=== PATIENT | male | born 1990 | race American Indian/Alaskan Native ===

== ENCOUNTER 2019-07-22 08:32 | Emergency (ER) | payer SELFPAY ==
[2019-07-22 08:43] VITALS: BP 105/75
--- NOTE | 2019-07-22 09:46 | Emergency Department Report ---
Minor Respiratory - HPI Chief Complaint: Upper Respiratory Infection Stated Complaint: COLD SX/TIGHTNESS IN CHEST Time Seen by Provider: 07/22/19 09:41 Duration: 2 Days Severity: mild Minor Respiratory: Yes Rhinorrhea, Yes Sore Throat, Yes Able to Tolerate Fluids, Yes Cough, Yes Fever (subjective) Other History: 29 year old -Martiniquais male presented to the emergency room complaining of cough and nasal congestion, sneezing, runny nose, headache located in the frontal and sore throat. Patient reports he symptoms have been going on for approximately 2 days. Patient does elicit that he is recently returned from being employed [place]. Patient reports she is having yellow to brownish mucus. Patient states he is taking cold and flu pills last dose was last night. ED Review of Systems ROS: Stated complaint: COLD SX/TIGHTNESS IN CHEST Other details as noted in HPI Comment: All other systems reviewed and negative Constitutional: fever ENT: throat pain, congestion, other (sneezing) Respiratory: cough Neurological: headache ED Past Medical Hx - Past Medical History Previous Medical History?: No - Surgical History Past Surgical History?: No - Social History Smoking Status: Never Smoker Substance Use Type: None - Medications Home Medications: Home Medications Medication Instructions Recorded Confirmed Last Taken Type DOXYCYCLINE Hyclate [Vibramycin 1 tab PO Q12HR #20 capsule 12/06/15 Unknown Rx CAP] Ondansetron [Zofran Odt] 1 tab PO Q8HR PRN #12 tab.rapdis 12/06/15 Unknown Rx Fluticasone Furoate [Flonase 15.8 ml NS QDAY #1 spray.susp 07/22/19 Unknown Rx Sensimist] Loratadine [Claritin] 10 mg PO DAILY #30 tablet 07/22/19 Unknown Rx cephALEXin [Keflex] 500 mg PO Q12HR #20 cap 07/22/19 Unknown Rx Minor Respiratory Exam - Exam General: Vital signs noted. No distress. Alert and acting appropriately. HEENT: Yes Pharyngeal Erythema, Yes Pharyngeal Exudates, Yes Moist Mucous Membranes, Yes Rhinorrhea, Yes Frontal Tenderness, Yes Maxillary Tenderness Ear: Neither TM Bulge, Neither TM Erythema, Neither EAC Pain, Neither EAC Discharge Neck: Yes Adenopathy (thyroidmegaly), Yes Supple Lungs: Yes Good Air Exchange, No Wheezes, No Ronchi, No Stridor, No Cough, No L abored Respirations, No Retractions, No Use of Accessory Muscles, No Other Abnormal Lung Sounds Heart: Yes Regular, No Murmur Abdomen: Yes Normal Bowel Sounds, No Tenderness, No Peritoneal Signs Skin: No Rash, No Edema Neurologic: Alert and oriented, no deficits. Musculoskeletal: Unremarkable. ED Course Vital Signs 07/22/19 08:41 Temperature 98.2 F Pulse Rate 68 Respiratory 16 Rate Blood Pressure 105/75 O2 Sat by Pulse 96 Oximetry ED Medical Decision Making - Medical Decision Making 29 year old -Martiniquais male presented to the emergency room complaining of cough and nasal congestion, sneezing, runny nose, headache located in the frontal and sore throat. Patient reports he symptoms have been going on for approximately 2 days. Patient does elicit that he is recently returned from being employed [place]. Patient states he is taking cold and flu pills last dose was last night. Patient reports she is having yellow to brownish mucus. Critical care attestation.: If time is entered above; I have spent that time in minutes in the direct care of this critically ill patient, excluding procedure time. ED Disposition Clinical Impression: Sinusitis chronic, frontal Disposition: DC-01 TO HOME OR SELFCARE Is pt being admited?: No Does the pt Need Aspirin: No Condition: Stable Instructions: Sinusitis (ED) Prescriptions: Loratadine [Claritin] 10 mg PO DAILY #30 tablet Fluticasone Furoate [Flonase Sensimist] 15.8 ml NS QDAY #1 spray.susp cephALEXin [Keflex] 500 mg PO Q12HR #20 cap Referrals: [facility] [Outside] - 3-5 Days [facility] [Outside] - 3-5 Days Forms: Work/School Release Form(ED)
== END 2019-07-22 09:58 | disposition home or self-care (01) ==
LOC: ED 08:32
DX: J32.1 Chronic frontal sinusitis (principal); Z79.899 Other long term (current) drug therapy
CPT/HCPCS: 99282

== ENCOUNTER 2021-07-18 12:40 | Emergency (ER) | payer SELFPAY ==
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
[2021-07-18 14:06] VITALS: BP 119/75
== END 2021-07-18 14:05 | disposition home or self-care (01) ==
LOC: ED 12:40
DX: S16.1XXA Strain of muscle, fascia and tendon at neck level, initial encounter (principal); M62.830 Muscle spasm of back; V49.59XA Passenger injured in collision with other motor vehicles in traffic accident, initial encounter; Y93.89 Activity, other specified; Y92.89 Other specified places as the place of occurrence of the external cause; Y99.8 Other external cause status
CPT/HCPCS: 99282

== ENCOUNTER 2021-10-09 12:46 | Emergency (ER) | payer SELFPAY ==
--- NOTE | 2021-10-09 14:09 | XRay Report ---
CHEST 2 VIEWS INDICATION / CLINICAL INFORMATION: sob. COMPARISON: None available. FINDINGS: SUPPORT DEVICES: None. HEART / MEDIASTINUM: No significant abnormality. LUNGS / PLEURA: There are mild patchy bilateral opacities. ADDITIONAL FINDINGS: No significant additional findings. IMPRESSION: 1. Mild patchy bilateral opacities likely reflect a multifocal pneumonia. Signer Name: Jose Angel Almaraz MD Signed: 10/09/2021 2:04 PM Workstation Name: [id number]
--- NOTE | 2021-10-09 14:15 | Emergency Department Report ---
- General Chief Complaint: Upper Respiratory Infection Stated Complaint: COVID SX'S Time Seen by Provider: 10/09/21 13:51 Source: patient Mode of arrival: Ambulatory Limitations: No Limitations - History of Present Illness Initial Comments: Patient is a 31-year-old male presents emergency room complaints of being COVID- 19 positive. He reports that he tested positive on 10/03/2022 while in [place] for a wedding. He has not been vaccinated for COVID-19. He has associated chills, headache, nausea, dry cough, shortness of breath, chest discomfort with coughing. He denies any fever, vomiting, diarrhea, hemoptysis, pleuritic pain. No past medical history. No allergies to medications. He is a non-smoker. - Related Data Previous Rx's Medication Instructions Recorded Last Taken Type DOXYCYCLINE Hyclate [Vibramycin 1 tab PO Q12HR #20 capsule 12/06/15 Unknown Rx CAP] Ondansetron [Zofran Odt] 1 tab PO Q8HR PRN #12 tab.rapdis 12/06/15 Unknown Rx Fluticasone Furoate [Flonase 15.8 ml NS QDAY #1 spray.susp 07/22/19 Unknown Rx Sensimist] Loratadine (Nf) [Claritin] 10 mg PO DAILY #30 tablet 07/22/19 Unknown Rx cephALEXin [Keflex] 500 mg PO Q12HR #20 cap 07/22/19 Unknown Rx Ibuprofen [Motrin] 600 mg PO Q8H PRN #30 tablet 07/18/21 Unknown Rx methOCARBAMOL [Robaxin TAB] 750 mg PO Q8H PRN #30 tablet 07/18/21 Unknown Rx Azithromycin [Zithromax TAB] 250 mg PO QDAY 5 Days #6 tablet 10/09/21 Unknown Rx Benzonatate [Tessalon Perles] 100 mg PO Q8HR PRN #12 cap 10/09/21 Unknown Rx Dexamethasone 6 mg PO DAILY 7 Days #7 tab 10/09/21 Unknown Rx guaiFENesin ER [Mucinex ER] 600 mg PO Q12H #14 tab 10/09/21 Unknown Rx Allergies Allergy/AdvReac Type Severity Reaction Status Date / Time No Known Allergies Allergy Verified 10/09/21 12:48 ED Review of Systems ROS: Stated complaint: COVID SX'S Other details as noted in HPI Comment: All other systems reviewed and negative ED Past Medical Hx - Past Medical History Previous Medical History?: No - Surgical History Past Surgical History?: No - Social History Smoking Status: Never Smoker Substance Use Type: None - Medications Home Medications: Home Medications Medication Instructions Recorded Confirmed Last Taken Type DOXYCYCLINE Hyclate [Vibramycin 1 tab PO Q12HR #20 capsule 12/06/15 Unknown Rx CAP] Ondansetron [Zofran Odt] 1 tab PO Q8HR PRN #12 tab.rapdis 12/06/15 Unknown Rx Fluticasone Furoate [Flonase 15.8 ml NS QDAY #1 spray.susp 07/22/19 Unknown Rx Sensimist] Loratadine (Nf) [Claritin] 10 mg PO DAILY #30 tablet 07/22/19 Unknown Rx cephALEXin [Keflex] 500 mg PO Q12HR #20 cap 07/22/19 Unknown Rx Ibuprofen [Motrin] 600 mg PO Q8H PRN #30 tablet 07/18/21 Unknown Rx methOCARBAMOL [Robaxin TAB] 750 mg PO Q8H PRN #30 tablet 07/18/21 Unknown Rx Azithromycin [Zithromax TAB] 250 mg PO QDAY 5 Days #6 tablet 10/09/21 Unknown Rx Benzonatate [Tessalon Perles] 100 mg PO Q8HR PRN #12 cap 10/09/21 Unknown Rx Dexamethasone 6 mg PO DAILY 7 Days #7 tab 10/09/21 Unknown Rx guaiFENesin ER [Mucinex ER] 600 mg PO Q12H #14 tab 10/09/21 Unknown Rx ED Physical Exam - General Limitations: No Limitations General appearance: alert, in no apparent distress - Head Head exam: Present: atraumatic, normocephalic - Eye Eye exam: Present: normal appearance - ENT ENT exam: Present: mucous membranes moist - Respiratory Respiratory exam: Present: normal lung sounds bilaterally. Absent: respiratory distress, wheezes, rales, rhonchi, stridor, chest wall tenderness, accessory muscle use, decreased breath sounds, prolonged expiratory - Cardiovascular Cardiovascular Exam: Present: regular rate, normal rhythm, normal heart sounds. Absent: systolic murmur, diastolic murmur, rubs, gallop - Neurological Exam Neurological exam: Present: alert, oriented X3 - Psychiatric Psychiatric exam: Present: normal affect, normal mood - Skin Skin exam: Present: warm, dry, intact ED Course Vital Signs 10/09/21 10/09/21 10/09/21 12:50 14:53 14:54 Temperature 98.4 F Pulse Rate 110 H 97 H Respiratory 18 14 Rate Blood Pressure 114/78 Blood Pressure 116/74 [Right] O2 Sat by Pulse 97 99 Oximetry ED Medical Decision Making - Radiology Data Radiology results: report reviewed Ordering Physician: MARLON OSULLIVAN Date of Service: 10/09/21 Procedure(s): XR chest routine 2V Accession Number(s): [id number] cc: MARLON OSULLIVAN Fluoro Time In Minutes: CHEST 2 VIEWS INDICATION / CLINICAL INFORMATION: sob. COMPARISON: None available. FINDINGS: SUPPORT DEVICES: None. HEART / MEDIASTINUM: No significant abnormality. LUNGS / PLEURA: There are mild patchy bilateral opacities. ADDITIONAL FINDINGS: No significant additional findings. IMPRESSION: 1. Mild patchy bilateral opacities likely reflect a multifocal pneumonia. Signer Name: Jose Angel Almaraz MD Signed: 10/09/2021 2:04 PM Workstation Name: [id number] Transcribed By: MAURICE Dictated By: Jose Angel Almaraz MD Electronically Authenticated By: Jose Angel Almaraz MD Signed Date/Time: 10/09/21 140 DD/ 03 TD/TT: - Medical Decision Making Patient is a 31-year-old male presents emergency room complaints of being COVID- 19 positive. He reports that he tested positive on 10/03/2022 while in [place] for a wedding. He has not been vaccinated for COVID-19. He has associated chills, headache, nausea, dry cough, shortness of breath, chest discomfort with coughing. He denies any fever, vomiting, diarrhea, hemoptysis, pleuritic pain. No past medical history. No allergies to medications. He is a non-smoker. Initial vitals with tachycardia which improved upon repeat. Breath sounds are clear bilaterally, no wheezing, no rales, no rhonchi, patient does have frequent dry cough during examination. Chest x-ray 1. Mild patchy bilateral opacities likely reflect a multifocal pneumonia. Discussed all findings with patient. Discussed supportive care and symptomatic treatment and importance of oral hydration. Advised patient Please take medication as prescribed. Increase your fluid intake. Follow-up with your primary care doctor for reexamination. Return to emergency room for any new or worsening symptoms. The CDC guidelines state that 5 days of self quarantine followed by 5 days of strict mask wearing. Critical care attestation.: If time is entered above; I have spent that time in minutes in the direct care of this critically ill patient, excluding procedure time. ED Disposition Clinical Impression: Pneumonia due to COVID-19 virus Disposition: HOME / SELF CARE / HOMELESS Is pt being admited?: No Does the pt Need Aspirin: No Condition: Stable Instructions: COVID-19, COVID-19: How to Protect Yourself and Others - CDC, Bacterial Pneumonia (ED) Additional Instructions: Please take medication as prescribed. Increase your fluid intake. Follow-up with your primary care doctor for reexamination. Return to emergency room for any new or worsening symptoms. The CDC guidelines state that 5 days of self quarantine followed by 5 days of strict mask wearing. Prescriptions: Dexamethasone 6 mg PO DAILY 7 Days #7 tab guaiFENesin ER [Mucinex ER] 600 mg PO Q12H #14 tab Benzonatate [Tessalon Perles] 100 mg PO Q8HR PRN #12 cap PRN Reason: cough Azithromycin [Zithromax TAB] 250 mg PO QDAY 5 Days #6 tablet Referrals: CELINA BROUSSARD MD [Staff Physician] - 3-5 Days [facility] [Provider Group] - 3-5 Days Forms: Work/School Release Form(ED) Time of Disposition: 14:13 Print Language: BANGLADESHI
[2021-10-09 14:54] VITALS: BP 116/74
== END 2021-10-09 14:52 | disposition home or self-care (01) ==
LOC: ED 14:39
DX: U07.1 COVID-19 (principal); J12.82 Pneumonia due to coronavirus disease 2019
CPT/HCPCS: 71046; 99283